=== PATIENT | male | born 1965 | race Caucasian/White ===

== ENCOUNTER 2018-07-17 22:53 | Inpatient (IN) | payer OTHER ==
[2018-07-17 23:46] LABS: ADD MAN DIFF? NO
[2018-07-17 23:49] LABS: WHITE BLOOD COUNT 7.8 10^3/ul (4.8-10.8)
[2018-07-17 23:49] LABS: BASOPHILS % 0.5 % (0.0-2.0); EOSINOPHILS # 0.2 10^3/ul (0.0-0.5); EOSINOPHILS % 2.2 % (0.0-7.0); HEMATOCRIT 45.7 % (42.0-52.0); HEMOGLOBIN 14.6 g/dl (14.0-18.0); LYMPHOCYTES # 1.2 10^3/ul (0.8-2.9); LYMPHOCYTES % 15.8 % (15.0-51.0); MEAN CORPUSCULAR HEMOGLOBIN 26.4 pg (29.0-33.0); MEAN CORPUSCULAR HGB CONC 31.9 g/dl (32.0-37.0); MEAN CORPUSCULAR VOLUME 82.8 fl (82.0-101.0); MEAN PLATELET VOLUME 10.5 fl (7.4-10.4); MONOCYTE # 0.5 10^3/ul (0.3-0.9); NEUTROPHIL # 5.9 10^3/ul (1.6-7.5); NEUTROPHILS % 75.2 % (39.0-77.0); PLATELET COUNT 205 10^3/UL (140-415); RED BLOOD COUNT 5.52 10^6/ul (4.70-6.10); RED CELL DISTRIBUTION WIDTH 13.7 % (11.5-14.5)
[2018-07-18] MEDS: ASPIRIN 325 MG TAB PO (00:06)
[2018-07-18] MEDS: NITROGLYCERIN (SL) 0.4 MG TAB SL (00:06)
[2018-07-18 00:09] LABS: ALANINE AMINOTRANSFERASE 52 IU/L (13-69); ALBUMIN 4.5 g/dl (3.3-4.9); ALBUMIN/GLOBULIN RATIO 1.45; ALKALINE PHOSPHATASE 134 IU/L (42-121); ANION GAP 9 (5-13); ASPARTATE AMINO TRANSFERASE 40 IU/L (15-46); BILIRUBIN,INDIRECT 0.7 mg/dl (0-1.1); BILIRUBIN,TOTAL 0.7 mg/dl (0.2-1.3); BLOOD UREA NITROGEN 20 mg/dl (7-20); CALCIUM 8.8 mg/dl (8.4-10.2); CARBON DIOXIDE 32 mmol/L (21-31); CHLORIDE 101 mmol/L (97-110); CREATININE 0.94 mg/dl (0.61-1.24); Estimated GFR > 60 mL/min (>60); GLUCOSE 119 mg/dl (70-220); LIPASE 64 U/L (23-300); POTASSIUM 3.2 mmol/L (3.5-5.1); SODIUM 142 mmol/L (135-144); TOTAL PROTEIN 7.6 g/dl (6.1-8.1)
[2018-07-18 00:21] LABS: B-TYPE NATRIURETIC PEPTIDE 216 PG/ML (0-125); INR 0.88; PT RATIO 0.9; TROPONIN-I 0.021 ng/ml (0.000-0.120)
[2018-07-18] MEDS: ONDANSETRON 4 MG INJ IV ×2 (01:03→07:04)
[2018-07-18] MEDS: morphine 4 MG/ML VIAL IV (01:03)
[2018-07-18] MEDS ORDERED: NACL 0.9% 3 ML SYG IV (04:00)
[2018-07-18] MEDS ORDERED: LABETALOL HCL 20MG INJ IV (04:00)
[2018-07-18] MEDS ORDERED: ACETAMINOPHEN 325 MG TAB PO (04:00)
[2018-07-18] MEDS: hydrALAzine 20 MG INJ IV (04:33)
[2018-07-18] MEDS: POTASSIUM CHLORIDE 20 MEQ POWDER FOR ORAL SOLN PO (04:33)
[2018-07-18 05:34] LABS: ADD MAN DIFF? NO
[2018-07-18 05:43] LABS: BASOPHILS % 0.3 % (0.0-2.0); EOSINOPHILS # 0.1 10^3/ul (0.0-0.5); EOSINOPHILS % 0.7 % (0.0-7.0); HEMATOCRIT 42.8 % (42.0-52.0); HEMOGLOBIN 14.1 g/dl (14.0-18.0); LYMPHOCYTES # 0.9 10^3/ul (0.8-2.9); LYMPHOCYTES % 8.6 % (15.0-51.0); MEAN CORPUSCULAR HEMOGLOBIN 27.2 pg (29.0-33.0); MEAN CORPUSCULAR HGB CONC 32.9 g/dl (32.0-37.0); MEAN CORPUSCULAR VOLUME 82.5 fl (82.0-101.0); MEAN PLATELET VOLUME 11.3 fl (7.4-10.4); MONOCYTE # 0.4 10^3/ul (0.3-0.9); MONOCYTES % 4.3 % (0.0-11.0); NEUTROPHIL # 8.6 10^3/ul (1.6-7.5); NEUTROPHILS % 85.8 % (39.0-77.0); PLATELET COUNT 199 10^3/UL (140-415); RED BLOOD COUNT 5.19 10^6/ul (4.70-6.10); RED CELL DISTRIBUTION WIDTH 13.8 % (11.5-14.5)
[2018-07-18 06:00] LABS: ALANINE AMINOTRANSFERASE 42 IU/L (13-69); ALBUMIN 4.1 g/dl (3.3-4.9); ALBUMIN/GLOBULIN RATIO 1.57; ALKALINE PHOSPHATASE 131 IU/L (42-121); ANION GAP 12 (5-13); ASPARTATE AMINO TRANSFERASE 38 IU/L (15-46); BILIRUBIN,INDIRECT 0.9 mg/dl (0-1.1); BILIRUBIN,TOTAL 0.9 mg/dl (0.2-1.3); BLOOD UREA NITROGEN 17 mg/dl (7-20); CALCIUM 8.6 mg/dl (8.4-10.2); CARBON DIOXIDE 26 mmol/L (21-31); CHLORIDE 102 mmol/L (97-110); CREATININE 0.77 mg/dl (0.61-1.24); Estimated GFR > 60 mL/min (>60); GLUCOSE 166 mg/dl (70-220); POTASSIUM 3.2 mmol/L (3.5-5.1); SODIUM 140 mmol/L (135-144); TOTAL PROTEIN 6.7 g/dl (6.1-8.1)
[2018-07-18 06:01] LABS: MAGNESIUM 2.1 mg/dl (1.7-2.5)
[2018-07-18 06:11] LABS: TROPONIN-I 0.015 ng/ml (0.000-0.120)
[2018-07-18] MEDS: LISINOPRIL 10 MG TAB PO (08:22)
[2018-07-18] MEDS: LABETALOL HCL 20MG INJ IV (09:09)
[2018-07-18] MEDS ORDERED: hydrALAzine 20 MG INJ IV (09:30)
[2018-07-18 09:34] LABS: CHOLESTEROL 135 mg/dl (100-200)
[2018-07-18 09:34] LABS: CHOL/HDL RATIO 2.6 RATIO; HDL CHOLESTEROL 51 mg/dl (28-71); LDL CHOLESTEROL,CALCULATED 75 mg/dl; TRIGLYCERIDES 46 mg/dl (0-149)
[2018-07-18] MEDS: ASPIRIN 81 MG TAB PO (09:52)
[2018-07-18] MEDS: POTASSIUM CHLORIDE (SR) 10 MEQ TAB PO (09:52)
[2018-07-18] MEDS: METOPROLOL 25 MG TAB PO ×2 (09:53→20:35)
[2018-07-18 10:49] LABS: HEMOGLOBIN A1C 5.7 % (0-5.9)
[2018-07-18 13:19] LABS: TROPONIN-I < 0.012 ng/ml (0.000-0.120)
[2018-07-19 06:52] LABS: ANION GAP 6 (5-13); BLOOD UREA NITROGEN 23 mg/dl (7-20); CALCIUM 8.8 mg/dl (8.4-10.2); CARBON DIOXIDE 29 mmol/L (21-31); CHLORIDE 106 mmol/L (97-110); CREATININE 1.14 mg/dl (0.61-1.24); Estimated GFR > 60 mL/min (>60); GLUCOSE 117 mg/dl (70-220); POTASSIUM 3.2 mmol/L (3.5-5.1); SODIUM 141 mmol/L (135-144)
[2018-07-19] MEDS: ASPIRIN 81 MG TAB PO (08:27)
[2018-07-19] MEDS: METOPROLOL 25 MG TAB PO ×2 (08:28→20:50)
[2018-07-19] MEDS: LISINOPRIL 10 MG TAB PO ×2 (08:28→14:24)
[2018-07-19] MEDS: POTASSIUM CHLORIDE (SR) 20 MEQ TAB PO ×2 (09:38→14:25)
[2018-07-19] MEDS: POTASSIUM CHLORIDE 100 ML IVPB ×3 (15:26→19:38)
[2018-07-19] MEDS: hydrALAzine 20 MG INJ IV (16:11)
[2018-07-19] MEDS: NITROGLYCERIN (SL) 0.4 MG TAB SL ×2 (17:28→18:30)
[2018-07-19] MEDS: HYDROCODONE/APAP (5/325) TAB PO (18:35)
[2018-07-19] MEDS: morphine 2 MG INJ IV ×2 (19:38→20:48)
[2018-07-19] MEDS: LISINOPRIL 20 MG TAB PO (20:50)
[2018-07-20] MEDS: hydrALAzine 20 MG INJ IV ×2 (00:18→06:58)
[2018-07-20] MEDS: ONDANSETRON 4 MG INJ IV ×2 (03:52→12:52)
[2018-07-20 06:21] LABS: ANION GAP 7 (5-13); BLOOD UREA NITROGEN 16 mg/dl (7-20); CALCIUM 9.2 mg/dl (8.4-10.2); CARBON DIOXIDE 27 mmol/L (21-31); CHLORIDE 107 mmol/L (97-110); CREATININE 0.73 mg/dl (0.61-1.24); Estimated GFR > 60 mL/min (>60); GLUCOSE 127 mg/dl (70-220); POTASSIUM 4.2 mmol/L (3.5-5.1); SODIUM 141 mmol/L (135-144)
[2018-07-20] MEDS: ASPIRIN 81 MG TAB PO (09:28)
[2018-07-20] MEDS: METOPROLOL 25 MG TAB PO (09:28)
[2018-07-20] MEDS: LISINOPRIL 20 MG TAB PO ×2 (10:42→20:22)
[2018-07-20] MEDS: REGADENOSON 0.4 MG/5 ML SYG (16:25)
[2018-07-20] MEDS: METOPROLOL 50 MG TAB PO (20:21)
[2018-07-20] MEDS: METOPROLOL 100 MG TAB PO (21:00)
[2018-07-21] MEDS: hydrALAzine 20 MG INJ IV ×2 (00:38→13:46)
[2018-07-21] MEDS: METOPROLOL 100 MG TAB PO ×3 (09:00→21:53)
[2018-07-21] MEDS: LISINOPRIL 20 MG TAB PO ×3 (09:00→21:52)
[2018-07-21] MEDS: ASPIRIN 81 MG TAB PO ×2 (09:00→11:29)
[2018-07-21] MEDS: SOD CHLORIDE 0.9% 100 ML (10:14)
[2018-07-21] MEDS: IOHEXOL 100 ML (10:15)
[2018-07-21] MEDS: AMLODIPINE 5 MG TAB PO (15:11)
[2018-07-21] MEDS: IOHEXOL 14.3 MG(I)/ML (ADULT) BTL PO (19:00)
[2018-07-22] MEDS: METOPROLOL 100 MG TAB PO (08:19)
[2018-07-22] MEDS: LISINOPRIL 20 MG TAB PO (08:19)
[2018-07-22] MEDS: ASPIRIN 81 MG TAB PO (08:20)
[2018-07-22] MEDS: AMLODIPINE 5 MG TAB PO (08:20)
[2018-07-22 23:07] LABS: ALDOSTERONE 7 ng/dL
[2018-07-23 21:07] LABS: RENIN, PLASMA 1.47 ng/mL/h (0.25-5.82)
== END 2018-07-22 14:15 | disposition home or self-care (01) | DRG 305 ==
LOC: E/R 22:53 → 2NE 07-20 17:49 → 6WM 07-18 00:51
DX: I16.1 Hypertensive emergency (principal); I50.32 Chronic diastolic (congestive) heart failure; R07.89 Other chest pain; I11.0 Hypertensive heart disease with heart failure; E87.6 Hypokalemia
CPT/HCPCS: 36415; 70450; 71045; 74170; 78452; 80048; 80053; 80061; 82088; 83036; 83690; 83735; 83880; 84244; 84443; 84484; 85025; 85610; 93005; 93017; 93306; 99285-25